=== PATIENT | female | born 1970 | race Caucasian/White ===

== ENCOUNTER 2019-07-19 13:41 | Outpatient (CLI) | payer BC, SELFPAY ==
--- NOTE | ~2019-07-19 | US_ITS ---
EXAMINATION: US thyroid DATE: 07/19/2019 14:55 INDICATION: Nontoxic goiter TECHNIQUE: Multiple ultrasound images of the thyroid were obtained. COMPARISON: None. FINDINGS: The right thyroid lobe measures 6.4 x 2.6 x 3.0 cm. The left thyroid lobe measures 6.2 x 2.6 x 2.8 c m. There are multiple well-defined wider than tall solid or predominant solid iso to hypoechoic nodu les throughout both thyroid lobes, a few with coarse shadowing calcifications (TI-RADS 4, moderately suspicious , FNA if >=1.5 cm, annual followup is >1 cm). The largest in the right thyroid lobe measur es 3.6 x 2.2 x 2.6 cm with smaller nodules in the right thyroid lobe measuring up to 1.6 cm, 1.5 cm, 1.3 cm and 1.2 cm. In the left thyroid the largest nodules measure 2.4 cm, 1.9 cm, 1.7 cm, 1.7 cm and 1.6 cm. There are additional smaller nodules in both thyroid lobes including a few which are either mixed or predominantly cystic. IMPRESSION: 1. Multinodular goiter. Recommend ultrasound-guided biopsy of the largest TI-RADS 4 3.6 cm right thyr oid nodule and 2.4 cm left thyroid nodule. Reviewed, dictated and finalized at location A. L MAKER IMPRESSION: 1. Multinodular goiter. Recommend ultrasound-guided biopsy of the largest TI-RA DS 4 3.6 cm right thyroid nodule and 2.4 cm left thyroid nodule.
--- NOTE | ~2019-07-19 | MM_ITS ---
EXAMINATION: MM screening jenni BI w mahad HISTORY: Screening mammogram TECHNIQUE: Craniocaudal and mediolateral oblique 3-D tomosynthesis images were obtained and synthetic 2-D images were generated. CAD analysis was submitted and interpreted. COMPARISON: No prior mammogram is available for comparison at this institution. BREAST PARENCHYMAL COMPOSITION: There are scattered areas of fibroglandular density. FINDINGS: There is no evidence of suspicious mass, calcification, or architectural distortion to sugg est malignancy in either breast. There has been no suspicious interval change. IMPRESSION: 1. No mammographic evidence of malignancy. 2. Recommend routine screening mammography in one year. BI-RADS Category 1: Negative Reviewed, dictated and finalized at location A. [employer]PA[employer]
== END 2019-07-19 13:42 | disposition home or self-care (01) ==
PROVIDERS: PCP Emergency Medicine; Visit Provider Emergency Medicine
DX: Z12.31 Encounter for screening mammogram for malignant neoplasm of breast (principal); E04.2 Nontoxic multinodular goiter
CPT/HCPCS: 76536; 77063; 77067

== ENCOUNTER 2019-07-27 14:08 | Outpatient (CLI) | payer BC, SELFPAY ==
--- NOTE | ~2019-07-27 | US_ITS ---
EXAMINATION: US FNA w image guidance, US FNA additional DATE: 07/27/2019 15:22 INDICATION: Nontoxic goiter with bilateral thyroid nodules. TECHNIQUE: A time-out was performed to verify the patient's name, date of , and procedure to be performed . The procedure and its benefits and risks were discussed with the patient. Risks specifically discus sed included bleeding and infection. The patient understood the risks and agreed to proceed. The neck was prepped and draped in the usual sterile manner. Attention was first turned to the left thyroid n odule. 3 mL 1% lidocaine was used for local anesthesia. 6 passes were made with a 25G needle into th e lesion. Appropriate needle location was documented with continuous sonographic guidance. Attentio n was then turned to the right thyroid nodule. An additional 2 mL 1% lidocaine was used for local ane sthesia. 6 passes were made with a 25G needle into the lesion again with continuous sonographic guid ance. A sterile bandage was applied. There were no immediate complications. FINDINGS: Grayscale ultrasound images demonstrate needles advanced into a 2.8 x 2.1 x 2.1 cm solid nodule with coarse central calcification is at the superior left thyroid lobe for biopsy. Subsequent images demon strate biopsy needle advanced into the 3.2 x 2.4 x 2.8 cm solid nodule in the deep mid right thyroid lobe. IMPRESSION: 1. Successful ultrasound-guided fine needle aspiration of a solid 2.8 cm TI RADS 4 nodule at the sup erior left thyroid. 2. Successful ultrasound-guided fine-needle aspiration of a 3.2 cm solid TI RADS 4 nodule at the deep mid right thyroid. Reviewed, dictated and finalized at location A. [employer]ER IMPRESSION: 1. Successful ultrasound-guided fine needle aspiration of a solid 2.8 cm TI RA DS 4 nodule at the superior left thyroid. 2. Successful ultrasound-guided fine-needle aspiration of a 3.2 cm solid TI RAD S 4 nodule at the deep mid right thyroid.
== END 2019-07-27 14:09 | disposition home or self-care (01) ==
PROVIDERS: PCP Emergency Medicine; Visit Provider Emergency Medicine
DX: E04.9 Nontoxic goiter, unspecified (principal)
CPT/HCPCS: 10005; 10006; 88108; 88173; 88305

== ENCOUNTER 2019-08-07 01:37 | Day surgery (SDC) | payer BC, SELFPAY ==
[2019-08-02 14:15] VITALS: BMI 28.2
--- NOTE | 2019-08-07 11:36 | PM.HPGS ---
History of Present Illness History of Present Illness Consent: Risks, benefits, and alternatives have been discussed and questions answered. Patient agrees to proceed with procedure. Chief complaint: Neoplasm Screening Narrative: Pricila Liriano is a 48 year old female with positive cologuard Review of Systems Constitutional: Constitutional: Denies headache(s) and Denies weakness Eyes: Eyes: Denies blurry vision ENT: Reports Normal hearing present, Denies headache(s) and Denies neck pain Cardiovascular: Cardiovascular: Denies chest pain and Denies dyspnea Respiratory: Respiratory: Denies dyspnea Gastrointestinal: Gastrointestinal: Reports no additional gastrointestinal complaints Genitourinary: Genitourinary: Denies dysuria Musculoskeletal: Musculoskeletal: Denies neck pain Integumentary/Breasts: Skin/Breast: Denies dry skin Neurologic: Reports Normal hearing present, Denies headache(s) and Denies weakness Psychiatric: Psychiatric: Denies anxiety Endocrine: Endocrine: Denies change in body appearance Hematologic/Lymphatic: Hematologic/Lymphatic: Denies easy bleeding Allergic/Immunologic: Allergic/Immunologic: Denies urticaria PMFSH Past Medical History Medical History delivery delivered (~1988) Diverticulitis (~2006) Fibromyalgia (~2006) Irritable bowel syndrome (IBS) (~2006) Surgical History Surgical History H/O prior ablation treatment (~2014) H/O rhinoplasty (~2011) H/O: hysterectomy (~2015) History of dilatation and curettage (~1991) History of rhinoplasty (~2013) Family History Family History Father , 73 Renal failure Social History Social History Smoking status: Never smoker Alcohol intake: never Substance use: never Meds Home Medications and Allergies Home Medications Medication Instructions Recorded Confirmed Type No Home Medications 08/07/19 08/07/19 History Allergies Allergy/AdvReac Type Severity Reaction Status Date / Time iron Allergy Unknown Unknown Verified 08/07/19 12:11 Exam Const: General: comfortable and no acute distress HENMT: General nose exam: Normal nares present Eyes: General: appearance normal, both eyes and all related structures Neck: Neck: no JVD Resp: Auscultation: clear to auscultation bilaterally Cardio: Rate: regular rate Rhythm: regular rhythm GI: Inspection: non-distended GI Palp: Yes Soft to palpation Skin: General skin exam: normal color Neuro: General: gait normal Speech: normal speech Extrem: General: normal to inspection Psych: Mental Status: mental status grossly normal Assessment and Plan Assessment and plan (1) Positive colorectal cancer screening using Cologuard test: Code(s): R19.5 - Other fecal abnormalities Status: Acute Assessment and Plan: will proceed with colonoscopy
[2019-08-07 12:13] VITALS: BP 143/86; PULSE 89; RESP 18; TEMP 36.9; O2SAT 98
[2019-08-07] MEDS: LACTATED RINGERS 1,000 ML 150 ML IV CONT (12:32)
--- NOTE | 2019-08-07 12:56 | WPDANESEPPF ---
Anes - Initial Pre Proc Eval Procedure: Operation Date: 08/07/19 13:30 Proposed Procedures p Screening Colonoscopy - Arden Terrell MD Date/Time: 08/07/19 12:56 Surgeon: Arden Terrell MD Pre Op Diagnosis: Neoplasm Screening Patient Data Age: 48 Gender: F Height: 5 ft 3 in Weight: 70.9 kg Last Vital Signs Temp 36.9 C 08/07/19 12:13 Pulse 89 08/07/19 12:13 Resp 18 08/07/19 12:13 BP 143/86 H 08/07/19 12:13 Pulse Ox 98 08/07/19 12:13 Allergies Allergy/AdvReac Type Severity Reaction Status Date / Time iron Allergy Unknown Unknown Verified 08/07/19 12:11 Home Medications Medication Instructions Recorded Confirmed Type No Home Medications 08/07/19 08/07/19 History Patient hx anesthesia problems: other (h/o difficult intubation in [place]) Family hx anesthesia problems: none [facility] Past Medical History Medical History delivery delivered (~1988) Diverticulitis (~2006) Fibromyalgia (~2006) Irritable bowel syndrome (IBS) (~2006) Surgical History Surgical History H/O prior ablation treatment (~2014) H/O rhinoplasty (~2011) H/O: hysterectomy (~2015) History of dilatation and curettage (~1991) History of rhinoplasty (~2013) Family History Family History Father , 73 Renal failure Social History Social History Smoking status: Never smoker Alcohol intake: never Substance use: never Anes - Eval Final PreProcedure Day of Procedure 08/07/19 12:56 Patient weight: overweight Heart: regular rate and rhythm Lungs: clear to auscultation Airway: Mallampati scale class II Neurological: alert and oriented Last oral intake: >/= 8 hours ASA classification: II Emergent: no Anesthetic plan: proceed Anesthesia type and monitoring: general GIVS and standard monitoring Informed Consent: The patient's anesthetic plan and its attendant risks and benefits were discussed with the patient/family/POA. Questions were solicited and answers provided to the satisfaction of the patient/family/POA.
[2019-08-07 14:07] VITALS: BP 112/47; PULSE 84; RESP 16; O2SAT 99
[2019-08-07 14:17] VITALS: BP 128/70; PULSE 86; RESP 18; O2SAT 99
[2019-08-07 14:27] VITALS: BP 127/70; PULSE 77; RESP 20; O2SAT 100
== END 2019-08-07 14:40 | disposition home or self-care (01) ==
PROVIDERS: PCP Emergency Medicine; Visit Provider Internal Medicine Gastroenterology
PROC: 0DJD8ZZ Inspection of Lower Intestinal Tract, Via Natural or Artificial Opening Endoscopic (ICD-10-PCS; CPT 45378; principal; 2019-08-07 13:30)
DX: Z12.11 Encounter for screening for malignant neoplasm of colon (principal); K63.5 Polyp of colon; K57.30 Diverticulosis of large intestine without perforation or abscess without bleeding; R19.5 Other fecal abnormalities; K58.9 Irritable bowel syndrome, unspecified; M79.7 Fibromyalgia
CPT/HCPCS: 45385; 88305; J2704; J7120

== ENCOUNTER 2019-10-31 16:46 | Inpatient (IN) | payer BC, SELFPAY ==
--- NOTE | ~2019-10-31 | XR_ITS ---
EXAMINATION: XR chest 1V portable EXAM DATE: 10/31/2019 18:50 INDICATION: Cough. Fever, diarrhea. TECHNIQUE: Portable AP frontal chest x-ray was obtained. There is no prior study for comparison. FINDINGS: The lungs are clear. There are no pleural effusions. The cardiomediastinal silhouette is within normal limits. There is no pneumothorax suspected. The bones and soft tissues are unremarkab le. IMPRESSION: No acute cardiopulmonary findings. Reviewed, dictated and finalized at location A.
--- NOTE | ~2019-10-31 | CT_ITS ---
EXAMINATION: CT abdomen pelvis w con EXAM DATE: 10/31/2019 18:34 INDICATION: Nausea vomiting diarrhea. Abdominal pain. TECHNIQUE: Spiral CT of the abdomen and pelvis was performed following intravenous injection of 100 m L Omnipaque 350. Axial, coronal and sagittal images were reviewed. The dose-length product (DLP) fo r this examination was 329.40 mGy-cm. The exposure was tailored according to patient size (auto mA e xposure control), and iterative reconstruction (ASIR) was used as additional dose reduction technique . There is no prior study for comparison. FINDINGS: The liver, spleen, adrenal glands and pancreas are unremarkable. Gallbladder is unremarkab le. No biliary obstruction. Portal and splenic veins are patent. Kidneys enhance symmetrically. T here is no hydronephrosis. The uterus is not identified and has likely been surgically resected. T he bladder is unremarkable. There is no retroperitoneal or pelvic lymphadenopathy. There is mild scattered colonic diverticulosis. There is inflammation above the midportion of the tra nsverse colon, most likely acute uncomplicated diverticulitis. The stomach and small bowel are unrem arkable. There is expected amount of colonic stool. No free intraperitoneal gas. The heart is no rmal in size. There are no pericardial or pleural effusions. The lung bases are unremarkable. Ther e are no osteoblastic or osteolytic lesions identified. IMPRESSION: 1. Acute uncomplicated transverse colonic diverticulitis. Reviewed, dictated and finalized at location A.
[2019-10-31 17:13] VITALS: BP 155/92; PULSE 113; RESP 20; TEMP 37; O2SAT 100
[2019-10-31 17:26] LABS: Basophils Percent Auto 0.4 % (0.2-1.2); Eosinophils Absolute Auto 0.1 K/mm3 (0-0.3); Eosinophils Percent Auto 1.9 % (0-4.4); Hematocrit 37.3 % (37.0-47.0); Hemoglobin 11.7 g/dL (12.0-15.0); Immature Granulocyte Absolute 0.01 K/mm3 (0.00-0.031); Immature Granulocyte Percent A 0.2 % (0-0.5); Lymphocytes Absolute Auto 2.51 K/mm3 (0.9-3.2); Lymphocytes Percent Auto 47.1 % (18.3-44.2); Mean Corpuscular HGB Conc 31.4 g/dl (32-36); Mean Corpuscular Hemoglobin 22.2 pg (26-34); Mean Corpuscular Volume 70.8 fl (80-100); Mean Platelet Volume 11.1 fl (7.4-10.4); Monocytes Absolute Auto 0.6 K/mm3 (0.1-0.6); Monocytes Percent Auto 10.5 % (2.6-8.5); Neutrophils Absolute Auto 2.1 K/mm3 (1.3-6.7); Neutrophils Percent Auto 39.9 % (45.5-73.1); Platelet Count Result 413 k/mm3 (150-375); Red Blood Count 5.27 M/mm3 (4.2-5.4); Red Cell Distribution Width 11.9 % (11.5-14.5); White Blood Count 5.3 K/mm3 (4.5-10.0)
[2019-10-31 17:34] VITALS: BP 140/80; PULSE 124; RESP 28; O2SAT 100
[2019-10-31] MEDS: FAMOTIDINE 20 MG/2 ML VIAL IV PUSH ×2 (17:40→21:08)
[2019-10-31] MEDS: ONDANSETRON HCL ODT 4 MG TABLET PO (17:40)
[2019-10-31 17:41] LABS: Alanine Aminotransferase 62 U/L (4-35); Albumin Level 4.1 g/dL (3.5-5.1); Alkaline Phosphatase 93 U/L (38-126); Aspartate Amino Transferase 42 U/L (14-36); Bilirubin,Total 0.4 mg/dL (0.2-1.3); Blood Urea Nitrogen 18 mg/dL (7-17); Calcium 10.1 mg/dL (8.4-10.2); Carbon Dioxide 23 mmol/L (22-30); Chloride 104 mmol/L (98-107); Estimated CRCL calculation 78 ml/min; Estimated Glomerular Filt Rate > 60; Glucose 128 mg/dL (65-105); Lipase 206 U/L (23-300); Magnesium 1.7 mg/dL (1.6-2.3); Phosphorus 3.3 mg/dL (2.5-4.5); Potassium 3.5 mmol/L (3.4-5.0); Sodium 139 mmol/L (137-145)
[2019-10-31] MEDS: SODIUM CHLORIDE 0.9% IV 1,000 ML 999 ML IV CONT ×2 (17:41→19:23)
[2019-10-31 17:57] LABS: Lactic Acid Reflex 2.4 mmol/L (0.7-2.1)
--- NOTE | 2019-10-31 18:00 | ED.NAVMDI ---
HPI - Nausea/Vomiting/Diarrhea General Chief complaint: Nausea/Vomiting/Diarrhea <Vinicio Jones PA-C - Last Filed: 10/31/19 19:10> Stated complaint: SENT BY PCP, N/V/D <Vinicio Jones PA-C - Last Filed: 10/31/19 19:10> Time Seen by Provider: 10/31/19 16:47 <SYEDA Cunningham Last Filed: 10/31/19 19:10> Source: patient and family <Vinicio Jones PA-C - Last Filed: 10/31/19 19:10> Mode of arrival: ambulatory <SYEDA Cunningham Last Filed: 10/31/19 19:10> Limitations: no limitations <SYEDA Cunningham Last Filed: 10/31/19 19:10> History of Present Illness HPI Narrative: Patient is a 49-year-old female who presents to emergency department for evaluation of skin fever chills body aches nonproductive cough with vomiting and diarrhea patient notes that her symptoms have been present for the last 10 days was seen at an urgent care in the last week was given a medicine unsure as to what it was but it did not help patient denies sick contacts or similar occurrence patient notes she was tested for COVID at the beginning and it has resolved. Patient denies known sick contacts symptoms began with congestion and rhinorrhea sore throat which have resolved now she has nonproductive cough with vomiting and diarrhea she has patient notes approximately one episode of emesis per day often has several loose stools. Patient denies chest pain or dyspnea <Vinicio Jones PA-C - Last Filed: 10/31/19 19:10> Related Data Allergies/Adverse reactions: Allergies Allergy/AdvReac Type Severity Reaction Status Date / Time iron Allergy Unknown Unknown Verified 08/07/19 12:11 <Vinicio Jones PA-C - Last Filed: 10/31/19 19:10> Review of Systems Review of Systems: All systems reviewed & are unremarkable except as noted in HPI and below <Vinicio Jones PA-C - Last Filed: 10/31/19 19:10> PMFSH Past Medical History Medical History: Medical History delivery delivered (~1988) Diverticulitis (~2006) Fibromyalgia (~2006) Irritable bowel syndrome (IBS) (~2006) Positive colorectal cancer screening using Cologuard test <Vinicio Jones PA-C - Last Filed: 10/31/19 19:10> Surgical History Surgical History: Surgical History H/O prior ablation treatment (~2014) H/O rhinoplasty (~2011) H/O: hysterectomy (~2015) History of dilatation and curettage (~1991) History of rhinoplasty (~2013) <Vinicio Jones PA-C - Last Filed: 10/31/19 19:10> Social History Social History: Social History Smoking status: Never smoker Alcohol intake: never Substance use: never Gender identity (if verbalized by the patient): Female <Vinicio Jones PA-C - Last Filed: 10/31/19 19:10> Exam Narrative: Exam Narrative: GENERAL: Ill-appearing, well-nourished, and in no acute distress. HEAD: Normocephalic, atraumatic. EYES: PERRLA and EOMI. ENT: Nares clear, no rhinorrhea or epistaxis. Mucous membranes moist. Oropharynx without tonsillar hypertrophy exudate or other lesions. NECK: Supple. No adenopathy or masses. No carotid bruits or JVD CHEST: Clear to auscultation. No respiratory distress. No wheezes rales or rhonchi HEART: Regular rate and rhythm. No murmur heard. Normal peripheral pulses. ABDOMEN: Soft, generalized tenderness without rebound or guarding, nondistended EXTREMITIES: Normal range of motion. No edema. SKIN: Warm, dry, no rash. NEURO: No focal deficits. Alert and oriented x3. Cranial nerves II through XII grossly intact PSYCH: Normal mood and affect. <Vinicio Jones PA-C - Last Filed: 10/31/19 19:10> Course Course Emergency Course: Patient in the room at this time resting comfortably aware of case findings treatment plan and diagnosis agreeing to follow-up as directed
[2019-10-31 18:30] VITALS: BP 136/55; PULSE 112; RESP 20; O2SAT 100
[2019-10-31 20:00] VITALS: BP 139/61; PULSE 116; RESP 20; O2SAT 100
[2019-10-31 20:44] LABS: Reflex Lactic Acid Yes or No Add Lactic
[2019-10-31 20:45] VITALS: BP 140/76; PULSE 118; RESP 20; TEMP 36.7; O2SAT 98; BMI 25.4
--- NOTE | 2019-10-31 20:56 | ADMGEN ---
This patient, Pricila Liriano, was admitted to 3 [facility] Surg Room 328-01. Patient/family oriented to hospital policies and general routines including ID bracelet, bed and alarms, visiting hours, pain management, procedures, bathroom and other care routines, personal items, smoking policy, room service/diet, and visiting hours. Valuables list has been completed. Information on how to activate the Rapid Response Team has been discussed. Patient/Family are encouraged to report perceived risks to care and to ask questions if they do not understand what they are told or what they should do.
[2019-10-31] MEDS: LACTATED RINGERS 1,000 ML 125 ML IV CONT (21:00)
[2019-10-31 21:14] LABS: Add Urine Microscopic? YES; Appearance Urine Clear (Clear); Bilirubin Urine Negative (Negative); Blood Urine Negative (Negative); Color Urine Straw (Yellow); Glucose Urine UA Negative (Negative); Ketones Urine Trace mg/dL (Negative); Leukocyte Esterase Ur Negative LEU/UL (Negative); Nitrate Urine Negative (Negative); Protein Urine Negative (Negative); RBC Urine 0-2 /hpf (0-2); Squamous Epithelial Cell Urine Moderate /hpf (Few); Urobilinogen Urine Negative mg/dL (<2.0); WBC Urine 0-3 /hpf
[2019-10-31 21:21] LABS: Specific Grav Ur > 1.060 (1.001-1.035)
[2019-10-31 21:22] LABS: Lactic Acid 1.4 mmol/L (0.7-2.1)
--- NOTE | 2019-10-31 22:39 | PM.IMHP ---
H&P: HPI History of Present Illness Chief complaint: Sepsis, diverticulitis Narrative: Pricila Liriano is a 49 year old female who had a positive Cologuard test that was positive and that she had a colonoscopy. The patient stated that she had 10 polyps removed and this was back on 08/07/2019. All of her polyps were benign. She was told that she has diverticulosis at that time. She has not had any problems with the until about 13 days ago. The patient had some abdominal cramping and nausea vomiting diarrhea that has been going on for 13 days. The patient went to urgent care clinic with her symptoms she said they gave her some type of antibiotics because she had been coughing as well and she had been tested for COVID approximately 8 days ago as well as her and they are both on to be negative. She has had a low-grade fever and dry cough. But no shortness of breath chest x-ray was negative today. CT of the abdomen acute uncomplicated transverse colonic diverticulitis. The patient is complaining of some right-sided tenderness. The lung bases are unremarkable. The patient was started on Zosyn. Her lactic was slightly elevated. Her H&H reveals that she is anemic which is not uncommon for her. She says she has a thalassemia trait. On IV fluids, Pepcid IV Tylenol and Zosyn. The patient stated she did not recall getting antibiotics in the emergency room however it is noted that she did and I also spoke with the charge nurse and ER as well as the nurse and ER. She does not have any leukocytosis. The fluids her reflux lactic was normal. Her AST and ALT are only mildly elevated. No LDH was checked. Date of service 10/31/2019 Review of Systems Review of Systems: All systems reviewed & are unremarkable except as noted in HPI and below Constitutional: Constitutional: Reports as per HPI and Reports no additional constitutional complaints Eyes: Eyes: Reports as per HPI and Reports no additional eye complaints ENT: Reports system reviewed and no additional complaints, except as documented and Reports Normal hearing present Cardiovascular: Cardiovascular: Reports no additional cardiovascular complaints Respiratory: Respiratory: Reports no additional respiratory complaints and Reports no additional respiratory complaints Gastrointestinal: Gastrointestinal: Reports as per HPI and Reports no additional gastrointestinal complaints Musculoskeletal: Musculoskeletal: Reports no additional musculoskeletal complaints Integumentary/Breasts: Skin/Breast: Reports system reviewed and no additional complaints, except as docu and Reports as per HPI Neurologic: Reports system reviewed and no additional complaints, except as documented, Reports as per HPI and Reports Normal hearing present Psychiatric: Psychiatric: Reports no additional psychiatric complaints and Reports as per HPI Endocrine: Endocrine: Reports no additional endocrine complaints Hematologic/Lymphatic: Hematologic/Lymphatic: Reports no additional hematologic/lymphatic complaints Allergic/Immunologic: Allergic/Immunologic: Reports no additional allergic/immunologic complaints [facility] Past Medical History Medical History (Updated 10/31/19 @ 22:55 by Pricila Begum NP) Anemia of chronic disease delivery delivered (~1988) Diverticulitis (~2006) Fibromyalgia (~2006) Irritable bowel syndrome (IBS) (~2006) Positive colorectal cancer screening using Cologuard test Thalassemia trait Thyroid enlargement Surgical History Surgical History (Updated 10/31/19 @ 22:55 by Pricila Begum NP) H/O colonoscopy with polypectomy 10 polyps removed H/O prior ablation treatment (~2014) H/O rhinoplasty (~2011) H/O: hysterectomy (~2015) History of section, classical X1 for breech baby History of dilatation and curettage (~1991) History of rhinoplasty (~2013) S/P thyroid biopsy Reported as benign Family History Family History (Reviewed 10/31/19 @ 22:54 by Pricila Elizabeth
[2019-11-01 02:00] VITALS: BP 133/79; PULSE 108; RESP 20; TEMP 36.6; O2SAT 96
[2019-11-01] MEDS: LACTATED RINGERS 1,000 ML 125 ML IV CONT (05:25)
[2019-11-01 06:00] VITALS: BP 131/69; PULSE 106; RESP 20; TEMP 36.4; O2SAT 96
[2019-11-01 07:05] LABS: Blood Urea Nitrogen 12 mg/dL (7-17); Calcium 9.4 mg/dL (8.4-10.2); Carbon Dioxide 25 mmol/L (22-30); Chloride 110 mmol/L (98-107); Estimated CRCL calculation 78 ml/min; Estimated Glomerular Filt Rate > 60; Glucose 87 mg/dL (65-105); Potassium 3.6 mmol/L (3.4-5.0); Sodium 138 mmol/L (137-145)
[2019-11-01 07:20] LABS: Basophils Percent Auto 0.2 % (0.2-1.2); Eosinophils Absolute Auto 0.1 K/mm3 (0-0.3); Eosinophils Percent Auto 3.1 % (0-4.4); Hematocrit 31.1 % (37.0-47.0); Hemoglobin 9.5 g/dL (12.0-15.0); Immature Granulocyte Absolute 0.01 K/mm3 (0.00-0.031); Immature Granulocyte Percent A 0.2 % (0-0.5); Lymphocytes Absolute Auto 1.68 K/mm3 (0.9-3.2); Lymphocytes Percent Auto 40.6 % (18.3-44.2); Mean Corpuscular HGB Conc 30.5 g/dl (32-36); Mean Corpuscular Volume 72.2 fl (80-100); Mean Platelet Volume 11.4 fl (7.4-10.4); Monocytes Absolute Auto 0.4 K/mm3 (0.1-0.6); Monocytes Percent Auto 10.1 % (2.6-8.5); Neutrophils Absolute Auto 1.9 K/mm3 (1.3-6.7); Neutrophils Percent Auto 45.8 % (45.5-73.1); Platelet Count Result 301 k/mm3 (150-375); Red Blood Count 4.31 M/mm3 (4.2-5.4); Red Cell Distribution Width 11.9 % (11.5-14.5); White Blood Count 4.1 K/mm3 (4.5-10.0)
[2019-11-01] MEDS: FAMOTIDINE 20 MG/2 ML VIAL IV PUSH (08:43)
[2019-11-01 10:00] VITALS: BP 126/60; PULSE 102; RESP 14; TEMP 36.9; O2SAT 98
--- NOTE | 2019-11-01 11:29 | PM.DS ---
DS: Admitting Diagnosis Admitting Diagnosis Admitting Diagnosis: Diverticulitis of intestine, part unspecified, without perforation or abscess without bleeding DS: Discharge Diagnosis Discharge Diagnosis (1) Diverticulitis: Code(s): K57.92 - Diverticulitis of intestine, part unspecified, without perforation or abscess without bleeding Status: Acute (2) Anemia of chronic disease: Code(s): D63.8 - Anemia in other chronic diseases classified elsewhere Status: Chronic (3) Thyroid nodule: Code(s): E04.1 - Nontoxic single thyroid nodule Status: Acute (4) Suspected COVID-19 virus infection: Code(s): Z20.828 - Contact with and (suspected) exposure to other viral communicable diseases Status: Acute DS: Summary Hospital Course Reason for hospitalization: Abdominal pain, nausea vomiting Hospital Course: Patient is a 49-year-old female who presented emergency room for nausea, vomiting and abdominal pain found to have diverticulitis. She also had Chills and nonproductive cough and was tested for COVID-19 but was negative outpatient. In the ER her temperature was 98.6?, pulse 124, respiratory rate 28, blood pressure 140/80, pulse ox [address] showed uncomplicated diverticulitis. Hemoglobin slightly low 11.7. White blood cell count normal. BMP within normal limits. Patient was admitted to the hospitalist service and started on Zosyn. The next day she was able to tolerate a low-fiber and had no complaints. She had some mild abdominal pain with eating, but her diarrhea had resolved as well as her constant abdominal pain. She was up walking around and having no chest pain or shortness of breath. Her tachycardia resolved on my exam. She said her cough has cleared since being in the hospital. She said she felt great and was ready to go home. She was instructed to follow-up with her primary care physician in 1 week and she agreed to do so. We talked about a low-fiber diet for 2 weeks and then to transition to a high-fiber diet. Her liver enzymes were slightly elevated, likely d/t vomiting and dairrhea with acute infection. Will repeat in one week to ensure they do not worsen. Her pcp has been CCed on the results. Status at Discharge Functional status at discharge: independent ambulation Overall status at discharge: patient is back to baseline Time Spent with Patient Time attestation: Total time spent providing and/or coordinating discharge services:34 min Time spent: Greater than 30 minutes Exam Narrative: Exam Narrative: General: Well developed well nourished patient resting in bed in NAD HEENT: normocephalic Neck: supple Neuro: Alert and oriented x4 CV:RRR Resp:CTA Abd: Soft, non distended. Some pain to palpation to left upper quadrant but mild. Positive bowel sounds Extremities: No swelling, erythema, or pain to palpation. DS: Data Data Completed and Pending Labs on day of discharge: Labs from last 24 hours 11/01/19 11/01/19 10/31/19 06:28 06:28 21:05 WBC 4.1 L RBC 4.31 Hgb 9.5 L Hct 31.1 L MCV 72.2 L MCH 22.0 L MCHC 30.5 L RDW 11.9 Plt Count 301 MPV 11.4 H Immature Gran % (Auto) 0.2 Neut % (Auto) 45.8 Lymph % (Auto) 40.6 [place] % (Auto) 10.1 H Eos % (Auto) 3.1 Baso % (Auto) 0.2 Lymph # (Auto) 1.68 [place] # (Auto) 0.4 Eos # (Auto) 0.1 Baso # (Auto) 0.0 Abs Immat Gran (auto) 0.01 Absolute Neuts (auto) 1.9 Absolute Nucleated RBC 0.0 Nucleated RBC % 0.0 Sodium 138 Potassium 3.6 Chloride 110 H Carbon Dioxide 25 BUN 12 D Creatinine 0.60 L Estim Creat Clear Calc 78 Estimated GFR > 60 Glucose 87 Lactic Acid 1.4 Calcium 9.4 Phosphorus Magnesium Total Bilirubin AST ALT Alkaline Phosphatase Total Protein Albumin Lipase Urine Color Urine Appearance Urine pH Ur Specific [place] Urine Protein Urine Glucose
[2019-11-01 12:13] VITALS: BMI 25.4
[2019-11-01 12:58] LABS: SARS-CoV-2 RNA PCR Negative
[2019-11-01 14:00] VITALS: BP 127/59; PULSE 107; RESP 16; TEMP 36.9; O2SAT 99
--- NOTE | 2019-11-02 09:10 | PC.NURSE ---
COVID test is negative.
--- NOTE | 2019-11-06 13:37 | PC.NURSE ---
Blood cx is negative
== END 2019-11-01 15:45 | disposition home or self-care (01) | DRG 392 ==
LOC: ANHED 19:10 → ANH3MEDSUR 19:46
PROVIDERS: Emergency Medicine Emergency Medical Services; Admitting Provider Family Medicine; Emergency Provider Emergency Medicine; PCP Emergency Medicine; Visit Provider Family Medicine
DX: K57.32 Diverticulitis of large intestine without perforation or abscess without bleeding (principal); Z20.828 Contact with and (suspected) exposure to other viral communicable diseases; E86.0 Dehydration; D63.8 Anemia in other chronic diseases classified elsewhere; E04.1 Nontoxic single thyroid nodule; M79.7 Fibromyalgia; K58.9 Irritable bowel syndrome, unspecified; Z90.710 Acquired absence of both cervix and uterus; Z87.891 Personal history of nicotine dependence
CPT/HCPCS: 36415; 71045; 74177; 80048; 80053; 81001; 83605; 83690; 83735; 84100; 85025; 87040; 87635; 96361; 96365; 96375; 96376; 99285; A9270; C9803; G0378; J0131; J2543; J7030; J7120; Q9967; U0003

== ENCOUNTER 2019-11-10 08:50 | Outpatient (CLI) | payer BC, SELFPAY ==
[2019-11-10 09:10] LABS: Basophils Percent Auto 0.2 % (0.2-1.2); Eosinophils Absolute Auto 0.1 K/mm3 (0-0.3); Eosinophils Percent Auto 2.2 % (0-4.4); Hematocrit 37.3 % (37.0-47.0); Hemoglobin 11.6 g/dL (12.0-15.0); Immature Granulocyte Absolute 0.01 K/mm3 (0.00-0.031); Immature Granulocyte Percent A 0.2 % (0-0.5); Lymphocytes Absolute Auto 2.06 K/mm3 (0.9-3.2); Lymphocytes Percent Auto 45.5 % (18.3-44.2); Mean Corpuscular HGB Conc 31.1 g/dl (32-36); Mean Corpuscular Hemoglobin 21.9 pg (26-34); Mean Corpuscular Volume 70.4 fl (80-100); Monocytes Absolute Auto 0.4 K/mm3 (0.1-0.6); Monocytes Percent Auto 9.5 % (2.6-8.5); Neutrophils Absolute Auto 1.9 K/mm3 (1.3-6.7); Neutrophils Percent Auto 42.4 % (45.5-73.1); Platelet Count Result 350 k/mm3 (150-375); Red Cell Distribution Width 12.8 % (11.5-14.5); White Blood Count 4.5 K/mm3 (4.5-10.0)
[2019-11-10 09:21] LABS: Alanine Aminotransferase 118 U/L (4-35); Albumin Level 3.9 g/dL (3.5-5.1); Alkaline Phosphatase 62 U/L (38-126); Aspartate Amino Transferase 81 U/L (14-36); Bilirubin,Total 0.6 mg/dL (0.2-1.3); Blood Urea Nitrogen 15 mg/dL (7-17); Calcium 9.8 mg/dL (8.4-10.2); Carbon Dioxide 26 mmol/L (22-30); Chloride 104 mmol/L (98-107); Cholesterol 123 mg/dL (0-200); Estimated Glomerular Filt Rate > 60; Glucose 116 mg/dL (65-105); HDL Direct 46 mg/dL; Potassium 3.6 mmol/L (3.4-5.0); Sodium 136 mmol/L (137-145); Triglycerides 109 mg/dL (<150)
[2019-11-10 09:34] LABS: LDL Cholesterol Direct 53 mg/dL
[2019-11-10 09:52] LABS: Thyroid Stimulating Hormone < 0.015 uIU/mL (0.465-4.680)
== END 2019-11-10 08:51 | disposition home or self-care (01) ==
LOC: ANHLAB 08:51
PROVIDERS: PCP Emergency Medicine; Visit Provider Emergency Medicine
DX: R53.83 Other fatigue (principal); E78.5 Hyperlipidemia, unspecified; K57.92 Diverticulitis of intestine, part unspecified, without perforation or abscess without bleeding
CPT/HCPCS: 36415; 80053; 80061; 84443; 85025

== ENCOUNTER 2019-11-14 11:44 | Outpatient (CLI) | payer BC, SELFPAY ==
[2019-11-14 12:47] LABS: Free T4 Free Thyroxine 6.51 ng/mL (0.78-2.19); Thyroid Stimulating Hormone < 0.015 uIU/mL (0.465-4.680); Total Triiodothyronine (T3) 5.03 NG/ML (0.97-1.69)
[2019-11-18 05:55] LABS: Thyroid Peroxidase Antibodies 1 IU/mL (<9)
== END 2019-11-14 11:45 | disposition home or self-care (01) ==
PROVIDERS: PCP Emergency Medicine; Visit Provider Emergency Medicine
DX: E05.90 Thyrotoxicosis, unspecified without thyrotoxic crisis or storm (principal)
CPT/HCPCS: 36415; 84439; 84443; 84480; 86376

== ENCOUNTER 2020-01-01 14:14 | Outpatient (CLI) | payer BC, SELFPAY ==
[2020-01-01 16:04] LABS: Thyroid Stimulating Hormone < 0.015 uIU/mL (0.465-4.680)
[2020-01-01 16:16] LABS: Free T4 Free Thyroxine 1.49 ng/mL (0.78-2.19)
[2020-01-04 13:02] LABS: Thyroid Stimulating Immunoglob 188 % baseline (<140)
== END 2020-01-01 14:15 | disposition home or self-care (01) ==
PROVIDERS: PCP Emergency Medicine; Visit Provider Internal Medicine Endocrinology, Diabetes & Metabolism
DX: E05.90 Thyrotoxicosis, unspecified without thyrotoxic crisis or storm (principal)
CPT/HCPCS: 36415; 84439; 84443; 84445

== ENCOUNTER 2020-01-30 13:52 | Outpatient (CLI) | payer BC, SELFPAY ==
[2020-01-30 15:04] LABS: Thyroid Stimulating Hormone < 0.015 uIU/mL (0.465-4.680); Total Triiodothyronine (T3) 1.02 NG/ML (0.97-1.69)
[2020-01-30 15:06] LABS: Free T4 Free Thyroxine 0.69 ng/mL (0.78-2.19)
== END 2020-01-30 13:53 | disposition home or self-care (01) ==
PROVIDERS: PCP Emergency Medicine; Visit Provider Internal Medicine Endocrinology, Diabetes & Metabolism
DX: E05.90 Thyrotoxicosis, unspecified without thyrotoxic crisis or storm (principal)
CPT/HCPCS: 36415; 84439; 84443; 84480

== ENCOUNTER 2020-02-26 12:11 | Outpatient (CLI) | payer BC, SELFPAY ==
[2020-02-26 13:33] LABS: Thyroid Stimulating Hormone 0.547 uIU/mL (0.465-4.680); Total Triiodothyronine (T3) 0.89 NG/ML (0.97-1.69)
[2020-02-26 13:39] LABS: Free T4 Free Thyroxine 0.49 ng/mL (0.78-2.19)
== END 2020-02-26 12:12 | disposition home or self-care (01) ==
PROVIDERS: PCP Emergency Medicine; Visit Provider Internal Medicine Endocrinology, Diabetes & Metabolism
DX: E05.90 Thyrotoxicosis, unspecified without thyrotoxic crisis or storm (principal)
CPT/HCPCS: 36415; 84439; 84443; 84480

== ENCOUNTER 2020-03-04 10:00 | Outpatient (CLI) | payer BC, SELFPAY ==
[2020-03-04 10:46] LABS: Hematocrit 41.4 % (37.0-47.0); Hemoglobin 12.7 g/dL (12.0-15.0); Mean Corpuscular HGB Conc 30.7 g/dl (32-36); Mean Corpuscular Hemoglobin 21.9 pg (26-34); Mean Corpuscular Volume 71.5 fl (80-100); Mean Platelet Volume 11.7 fl (7.4-10.4); Platelet Count Result 153 k/mm3 (150-375); Red Blood Count 5.79 M/mm3 (4.2-5.4); Red Cell Distribution Width 16.9 % (11.5-14.5); White Blood Count 8.6 K/mm3 (4.5-10.0)
[2020-03-04 10:49] LABS: Alanine Aminotransferase 29 U/L (4-35); Albumin Level 4.2 g/dL (3.5-5.1); Alkaline Phosphatase 156 U/L (38-126); Anion Gap 9 mmol/L (8-16); Aspartate Amino Transferase 24 U/L (14-36); Bilirubin,Total 0.4 mg/dL (0.2-1.3); Blood Urea Nitrogen 14 mg/dL (7-17); Calcium 9.3 mg/dL (8.4-10.2); Carbon Dioxide 26 mmol/L (22-30); Chloride 102 mmol/L (98-107); Estimated Glomerular Filt Rate > 60; Glucose 94 mg/dL (65-105); Potassium 4.4 mmol/L (3.4-5.0); Sodium 137 mmol/L (137-145)
== END 2020-03-04 10:01 | disposition home or self-care (01) ==
PROVIDERS: PCP Emergency Medicine; Visit Provider Internal Medicine Endocrinology, Diabetes & Metabolism
DX: E05.90 Thyrotoxicosis, unspecified without thyrotoxic crisis or storm (principal)
CPT/HCPCS: 36415; 80053; 85027

== ENCOUNTER 2020-04-01 07:31 | Outpatient (CLI) | payer BC, SELFPAY ==
--- NOTE | ~2020-04-01 | US_ITS ---
EXAMINATION: US thyroid DATE: 04/01/2020 08:14 INDICATION: Nontoxic single thyroid nodule TECHNIQUE: Multiple ultrasound images of the thyroid were obtained. COMPARISON: 07/19/2019 and 07/27/2019 FINDINGS: The right thyroid lobe measures 6.8 x 3.7 x 3.4 cm. The left thyroid lobe measures 6.6 x 2.5 x 2.7 c m. Again seen are multiple bilateral thyroid nodules the majority solid hypoechoic. These include th e previously biopsied TI RADS 4 right thyroid nodule which currently measures 4.3 x 2.7 x 2.4 cm whic h is slightly larger than prior dimensions of 3.8 x 2.6 x 2.2 cm and with pathology from the prior bi opsy noted as consistent with benign follicular nodule . No significant interval change in the remai aayush smaller nodules in the right thyroid. No interval change in size of a 1.6 cm solid isoechoic nod ule at the thyroid isthmus. Minimal increase in size of the second biopsied TI RADS 4 nodule at the s uperior left thyroid lobe which previously measured 2.1 x 2.1 cm in transverse dimensions, currently 2.4 x 2.2 cm. This nodule measured 2.8 cm length at the time of the prior biopsy however length measu rement is not provided in the current study. Pathology from this nodule was also read as consistent with benign follicular nodule. Interval increase in size of a now 2.0 cm, previously 1.7 cm predomin antly solid wider than tall hypoechoic nodule with smooth margins in the left thyroid lobe TI-RADS 4. No interval change in a 1.7 cm nodule in the more inferior left thyroid lobe. IMPRESSION: 1. The nodular goiter. There is been interval increase in size of a now 2.0 cm TI RADS 4 nodule in th e deep mid left thyroid lobe for which ultrasound-guided biopsy would be recommended. Reviewed, dictated and finalized at location A. Y [employer] WORK[employer] IMPRESSION: 1. The nodular goiter. There is been interval increase in size of a now 2.0 cm TI RADS 4 nodule in the deep mid left thyroid lobe for which ultrasound-guided biopsy would be recommended.
[2020-04-01 09:00] LABS: Free T4 Free Thyroxine 0.63 ng/mL (0.78-2.19)
== END 2020-04-01 07:32 | disposition home or self-care (01) ==
PROVIDERS: PCP Emergency Medicine; Visit Provider Internal Medicine Endocrinology, Diabetes & Metabolism
DX: E04.1 Nontoxic single thyroid nodule (principal); E05.90 Thyrotoxicosis, unspecified without thyrotoxic crisis or storm
CPT/HCPCS: 36415; 76536; 84439; 84443; 84480

== ENCOUNTER 2020-04-19 11:26 | Outpatient (CLI) | payer BC, SELFPAY ==
[2020-04-19 12:04] LABS: Hemoglobin A1C 5.5 % (<5.7)
[2020-04-19 12:35] LABS: Free T4 Free Thyroxine 0.57 ng/mL (0.78-2.19)
[2020-04-19 12:38] LABS: Total Triiodothyronine (T3) 1.04 NG/ML (0.97-1.69)
== END 2020-04-19 11:27 | disposition home or self-care (01) ==
LOC: ANHLAB 11:27
PROVIDERS: PCP Emergency Medicine; Visit Provider Internal Medicine Endocrinology, Diabetes & Metabolism
DX: E11.9 Type 2 diabetes mellitus without complications (principal); E05.90 Thyrotoxicosis, unspecified without thyrotoxic crisis or storm
CPT/HCPCS: 36415; 83036; 84439; 84443; 84480

== ENCOUNTER 2020-05-07 12:58 | Outpatient (CLI) | payer BC, SELFPAY ==
--- NOTE | ~2020-05-07 | US_ITS ---
EXAMINATION: US FNA w image guidance DATE: 05/07/2020 13:51 INDICATION: Nontoxic single thyroid nodule. TECHNIQUE: The neck was prepped and draped in the usual sterile manner. 1% lidocaine was used for local anesthe collins. 5 passes were made with a 25G needle into the lesion. Appropriate needle location was document ed with continuous sonographic guidance. There were no immediate complications. FINDINGS: Grayscale ultrasound images demonstrate needles advanced into a 2.0 cm nodule in deep mid left thyroi d lobe for biopsy. IMPRESSION: 1. Ultrasound-guided fine needle aspiration of a left thyroid nodule. Reviewed, dictated and finalized at location A. [employer]
== END 2020-05-07 12:59 | disposition home or self-care (01) ==
PROVIDERS: PCP Emergency Medicine; Visit Provider Internal Medicine Endocrinology, Diabetes & Metabolism
DX: E04.9 Nontoxic goiter, unspecified (principal)
CPT/HCPCS: 10005; 88173; 88305

== ENCOUNTER 2020-06-05 08:54 | Outpatient (CLI) | payer BC, SELFPAY ==
--- NOTE | 2020-06-05 12:00 | NEURO_ITS ---
Impression: # Complains of numbness in upper and lower extremities for over a year with no family history of such symptomatology. # Normal nerve conduction study of upper and lower extremities. # Normal needle/EMG exam without any neurogenic changes noted. # Clinical correlation recommended. Nerve Conduction Studies Anti Sensory Summary Table Stim Site NR Peak (ms) P-T Amp (?V) Site1 Site2 Delta-P (ms) Dist (cm) Adriano (m/s) Left Median Anti Sensory (2-3nd Digit) Wrist 2.7 46.0 Wrist 2-3nd Digit 2.7 14.0 52 Wrist 2.7 91.4 Wrist 2-3nd Digit 2.7 14.0 52 Right Median Anti Sensory (2-3nd Digit) Wrist 2.6 87.5 Wrist 2-3nd Digit 2.6 14.0 54 Wrist 2.6 86.7 Wrist 2-3nd Digit 2.6 14.0 54 Left Radial Anti Sensory (Base 1st Digit) Wrist 1.8 64.5 Wrist Base 1st Digit 1.8 0.0 Right Radial Anti Sensory (Base 1st Digit) Wrist 2.2 43.4 Wrist Base 1st Digit 2.2 0.0 Left Sup Fibular Anti Sensory (Ant Lat Mall) 14 cm 3.6 15.7 14 cm Ant Lat Mall 3.6 16.0 44 Right Sup Fibular Anti Sensory (Ant Lat Mall) 14 cm 3.3 15.5 14 cm Ant Lat Mall 3.3 16.0 48 Left Sural Anti Sensory (Lat Mall) Calf 3.5 9.5 Calf Lat Mall 3.5 16.0 46 Right Sural Anti Sensory (Lat Mall) Calf 3.9 12.3 Calf Lat Mall 3.9 16.0 41 Left Ulnar Anti Sensory (5th Digit) Wrist 2.5 89.0 Wrist 5th Digit 2.5 14.0 56 Right Ulnar Anti Sensory (5th Digit) Wrist 2.4 73.8 Wrist 5th Digit 2.4 14.0 58 Motor Summary Table Stim Site NR Onset (ms) O-P Amp (mV) Site1 Site2 Delta-0 (ms) Dist (cm) Adriano (m/s) Left Median Motor (Abd Poll Brev) Wrist 3.2 2.8 Elbow Wrist 5.1 29.0 57 Elbow 8.3 1.8 Right Median Motor (Abd Poll Brev) Wrist 2.5 2.0 Elbow Wrist 4.7 26.0 55 Elbow 7.2 1.4 Left Peroneal Motor (Vastus Med) Ankle 4.0 4.4 Popit Ankle 7.6 36.0 47 Popit 11.6 2.4 Right Peroneal Motor (Vastus Med) Ankle 4.1 6.1 Popit Ankle 6.5 33.0 51 Popit 10.6 5.3 Left Tibial Motor (Abd Payne Brev) Ankle 4.1 4.1 Knee Ankle 7.9 39.0 49 Knee 12.0 2.5 Right Tibial Motor (Abd Payne Brev) Ankle 3.8 3.7 Knee Ankle 7.6 39.0 51 Knee 11.4 3.0 Left Ulnar Motor (Abd Dig Minimi) Wrist 2.3 7.0 A Elbow Wrist 4.7 27.0 57 A Elbow 7.0 6.0 Right Ulnar Motor (Abd Dig Minimi) Wrist 2.3 4.9 A Elbow Wrist 4.6 27.0 59 A Elbow 6.9 3.7 F Wave Studies NR F-Lat (ms) L-R F-Lat (ms) Left Median (Mrkrs) (Abd Poll Brev) 26.20 2.07 Right Median (Mrkrs) (Abd Poll Brev) 28.27 2.07 Left Peroneal (Mrkrs) (EDB) 47.77 0.43 Right Peroneal (Mrkrs) (EDB) 48.20 0.43 Left Tibial (Mrkrs) (Abd Hallucis) 48.64 0.78 Right Tibial (Mrkrs) (Abd Hallucis) 49.42 0.78 Left Ulnar (Mrkrs) (Abd Dig Min) 27.19 1.17 Right Ulnar (Mrkrs) (Abd Dig Min) 28.36 1.17 EMG Side Muscle Nerve Root Ins Act Fibs Amp Dur Recrt Comment Right 1stDorInt Ulnar C8-T1 Nml Nml Nml Nml Nml Right Ext Indicis Radial (Post Int) C7-8 Nml Nml Nml Nml Nml Right Ext Digitorum Radial (Post Int) C7-8 Nml Nml Nml Nml Nml Right BrachioRad Radial C5-6 Nml Nml Nml Nml Nml Right PronatorTeres Median C6-7 Nml Nml Nml Nml Nml Right Abd Poll Brev Median C8-T1 Nml Nml Nml Nml Nml
== END 2020-06-05 08:55 | disposition home or self-care (01) ==
PROVIDERS: PCP Emergency Medicine; Visit Provider Emergency Medicine
DX: R20.0 Anesthesia of skin (principal)
CPT/HCPCS: 95886; 95913

== ENCOUNTER 2020-07-24 15:33 | Outpatient (CLI) | payer BC, SELFPAY ==
[2020-07-24 16:56] LABS: Thyroid Stimulating Hormone 0.254 uIU/mL (0.465-4.680); Total Triiodothyronine (T3) 1.11 NG/ML (0.97-1.69)
[2020-07-24 17:25] LABS: Free T4 Free Thyroxine 0.95 ng/mL (0.78-2.19)
== END 2020-07-24 15:34 | disposition home or self-care (01) ==
LOC: ANHLAB 15:34
PROVIDERS: PCP Emergency Medicine; Visit Provider Internal Medicine Endocrinology, Diabetes & Metabolism
DX: E05.90 Thyrotoxicosis, unspecified without thyrotoxic crisis or storm (principal)
CPT/HCPCS: 36415; 84439; 84443; 84480

== ENCOUNTER 2020-07-31 13:48 | Outpatient (CLI) | payer BC, SELFPAY ==
--- NOTE | ~2020-07-31 | MM_ITS ---
EXAMINATION: MM screening jenni BI w mahad HISTORY: Screening mammogram TECHNIQUE: Craniocaudal and mediolateral oblique 3-D tomosynthesis images were obtained and synthetic 2-D images were generated. CAD analysis was submitted and interpreted. COMPARISON: 07/19/2019 bilateral digital screening mammogram BREAST PARENCHYMAL COMPOSITION: There are scattered areas of fibroglandular density. FINDINGS: There is no evidence of suspicious mass, calcification, or architectural distortion to sugg est malignancy in either breast. There has been no suspicious interval change. IMPRESSION: 1. No mammographic evidence of malignancy. 2. Recommend routine screening mammography in one year. BI-RADS Category 1: Negative Reviewed, dictated and finalized at location A. [employer] TECHNICIAN
== END 2020-07-31 13:49 | disposition home or self-care (01) ==
LOC: ANHIMG 13:52
PROVIDERS: PCP Emergency Medicine; Visit Provider Emergency Medicine
DX: Z12.31 Encounter for screening mammogram for malignant neoplasm of breast (principal)
CPT/HCPCS: 77063; 77067